=== PATIENT | female | born 1965 | race Caucasian/White ===

== ENCOUNTER 2017-04-07 12:34 | Emergency (ER) | payer OTHER ==
[2017-04-07] MEDS: LIDOCAINE 2% VISC 15 ML CUP PO (18:08)
[2017-04-07] MEDS: IBUPROFEN 600 MG TAB PO (18:08)
[2017-04-07] MEDS: ACETAMINOPHEN 325 MG TAB PO (18:08)
== END 2017-04-07 19:47 | disposition home or self-care (01) ==
LOC: FTE 12:34
DX: J10.1 Influenza due to other identified influenza virus with other respiratory manifestations (principal)
CPT/HCPCS: 71045; 87400; 87880; 99284-25